=== PATIENT | female | born 2000 | race Caucasian/White ===

== ENCOUNTER 2021-07-20 22:37 | Emergency (ER) | payer SELFPAY ==
[2021-07-20 22:42] VITALS: PULSE 59; TEMP 36.6; O2SAT 98
--- NOTE | 2021-07-20 23:05 | W.ED.GENAD ---
Discharge Plan Disposition Patient Disposition: HOME Discharge Details Chief Complaint: HeadInjury Clinical Impression: Concussion Primary Care Provider: Unknown,Unknown ED Provider: Ted Rocha Home Meds and New Rx's Prescriptions: No Action fluoxetine 60 mg Tablet 60 mg PO QID 0RF Discharge Instructions Instructions: Concussion (ED) Additional Instructions: You may take Tylenol Motrin if she has a headache. You may apply ice pack to the affected area for comfort Please follow-up with your primary care doctor HPI General Date/Time Provider Initiated Documentation: 07/20/21 22:38. HPI Narrative: 21-year-old presented to the emergency room for evaluation of head trauma. She sustained an air BMB, she was on her knees trying to shut the light off over the bed and unfortunately the fan is very low. She got hit on the left temporal area but then sustained acute injury that happened just prior to coming to the ED. Has not taken anything for the pain. small abrasion with hematoma. No loss of consciousness. No visual changes. Mild nausea. No amnesia. For these reason she came to the emergency room for evaluation Related Data Home Medications Medication Instructions Recorded Confirmed fluoxetine 60 mg tablet 60 mg PO QID 07/20/21 07/20/21 Allergies Allergy/AdvReac Type Severity Reaction Status Date / Time peanut Allergy Severe Unverified 07/20/21 22:49 tree nut Allergy Severe Unverified 07/20/21 22:49 cetirizine [From [facility]] AdvReac Mild Unverified 07/20/21 22:49 General Stated Complaint: HeadInjury EUN: 3 Review of Systems Narrative: Constitutional negative for fever chills. Fatigue. HEENT normal vision. No tinnitus Cardiovascular no palpitations Respiratory no cough GI no nausea no vomiting MSK negative Skin see HPI Neurologic see HPI Psychiatric negative Hematological not on blood PFSH All Active Problems (Updated 07/20/21 @ 23:20 by Ted Rocha MD) Concussion (Acute) Social History Smoking/Tobacco Use Status: Never Smoking risk assessment performed?: Yes Do you feel safe at home: Yes Do you feel safe in your relationship?: Yes Exam Narrative Exam Narrative: Awake alert [place] x3 calm no acute distress Head abrasion over the left protestant area, patient does have a hematoma that is mildly tender. Pupils equal reactive to light accommodation. EOMI. MMM Neck supple Chest CTAB RRR Skin - normal cap refill Ext- normal Psych normal mood and affect Course Well-appearing 21-year-old with possible mild concussion Concussion care reviewed Vital Signs Vital signs: Vital Signs Temperature 36.6 C 07/20/21 22:42 Pulse 59 L 07/20/21 22:42 Pulse Oximetry 98 07/20/21 22:42 Temperature 36.6 C 07/20/21 22:42 Pulse 59 L 07/20/21 22:42 Respiratory Effort 07/20/21 22:51 Blood Pressure Position Sitting 07/20/21 22:42 Pulse Oximetry 98 07/20/21 22:42 Oxygen Delivery Method Room Air 07/20/21 22:42 Oxygen Flow Rate 0 07/20/21 22:42 Pain Level 5 07/20/21 22:51 PAWSS Have you Been Recently Intoxicated or Drunk Within the Last 30 days?: No Have you Ever Experienced Previous Episodes of Alcohol Withdrawal?: No Have you ever Experienced Withdrawal Seizures?: No Have you ever Experienced Delirium Tremens(DT)s?: No Have you ever undergone Alcohol Rehabilitation Treatment (i.e, inpt ot outpatient treatment programs)?: No Have you ever Experienced Blackouts?: No Have you ever Combined Alcohol with other Downers within the last 90 days?: No Have you ever Combined Alcohol with any other Substance of Abuse during the last 90 days?: No Positive Blood Alcohol level on Presentation? [PCS.BAL]: No Evidence of Increased Autonomic Activity (i.e. HR>120, tremor, sweating, agitation, nausea)?: No Result: 0
== END 2021-07-20 23:23 | disposition home or self-care (01) ==
PROVIDERS: Emergency Provider Emergency Medicine
DX: S06.0X0A Concussion without loss of consciousness, initial encounter (principal); W20.8XXA Other cause of strike by thrown, projected or falling object, initial encounter
CPT/HCPCS: 99282